=== PATIENT | female | born 1995 | race Caucasian/White ===

== ENCOUNTER 2017-11-03 13:38 | Emergency (ER) | payer OTHER ==
[~2017-11-03] VITALS: Ht 165.1 cm; Wt 54.4 kg
[2017-11-03 14:07] LABS: ABSOLUTE BASOPHIL COUNT 0 /CUMM (0.0-0.2); ABSOLUTE EOSINOPHIL COUNT 0.2 /CUMM (0.0-0.7); ABSOLUTE GRANULOCYTE CT 4.1 /CUMM (1.4-6.5); ABSOLUTE LYMPH COUNT 3.4 /CUMM (1.2-3.4); ABSOLUTE MONOCYTE COUNT 0.6 /CUMM (0.10-0.60); BASOPHIL % 0.4 % (0.0-2.0); EOSINOPHIL % 2.3 % (0-5); GRANULOCYTE % 49.5 % (42.2-75.2); HEMATOCRIT 39.5 % (37-47); MEAN CORPUSCULAR HGB CONC 33.5 G/DL (33.0-37.0); MEAN CORPUSCULAR VOLUME 86.8 FL (81.0-99.0); MEAN PLATELET VOLUME 9.6 FL (7.4-10.4); PLATELET COUNT 280 /CUMM (130-400); RBC DISTRIBUTION WIDTH 14.9 % (11.5-14.5); RED BLOOD CELL CT 4.55 /CUMM (4.20-5.40); WHITE BLOOD CELL COUNT 8.4 /CUMM (4.8-10.8)
--- NOTE | 2017-11-03 15:36 | ULTRASOUND REPORT ---
EXAMINATION: US ABDOMEN LIMITED CLINICAL INFORMATION: Right upper quadrant pain. Hepatitis C. Patient nonfasting.. COMPARISON: None TECHNIQUE: Real-time imaging of the right upper quadrant abdominal viscera. FINDINGS: PANCREAS: Visualized portions of the head and body of the pancreas unremarkable. The distal tail is obscured by overlying bowel gas. LIVER: The liver is normal in echotexture. No focal lesion. No intrahepatic biliary dilatation. The main portal vein is patent with appropriate direction of flow. The liver is not enlarged. GALLBLADDER: The gallbladder is relatively collapsed consistent with a nonfasting state. No pericholecystic fluid. No stones visualized. COMMON BILE DUCT: Normal in caliber measuring 0.3 cm in diameter. RIGHT KIDNEY: Normal. Mild pelviectasis. No renal calculi or focal parenchymal lesions. The kidney measures 9.2 cm in maximum dimension. FREE FLUID: None. IMPRESSION: 1. Mild right renal pelviectasis. 2. No cholelithiasis or sonographic evidence for acute cholecystitis. 3. Unremarkable sonographic appearance of the liver.
--- NOTE | 2017-11-03 15:42 | ED GI/GU/ABDOMINAL COMPLAINT ---
History of Present Illness General Chief Complaint: Abdominal Pain/Flank Pain Stated Complaint: FLANK PAIN Source: patient Exam Limitations: no limitations Vital Signs & Intake/Output Vital Signs & Intake/Output Vital Signs Date Time Temp Pulse Resp B/P B/P Pulse O2 O2 Flow FiO2 Mean Ox Delivery Rate 11/03 1607 98.7 75 18 104/70 98 Room Air Room Air 11/03 1348 99 Room Air 11/03 1342 98.2 90 18 107/73 99 Room Air Allergies Coded Allergies: NO KNOWN ALLERGIES (08/11/13) Reconcile Medications No Known Home Medications Triage Note: 22F WITH PAIN TO RIGHT RIB AREA THAT RADIATES TO BACK X1 MONTH, WAS TOLD SHE HAS HIGH LIVER ENZYMES AND +HEP C (HX IVDA). DENIES WORSENING W EATING BUT ENDORSES WORSENING ACID REFLUX. SOMETIMES PAIN IS WORSE WITH DEEP INSPIRATION. DENIES RELIEVING FACTORS. DENIES ETOH. DENIES DYSURIA OR HEMATURIA. DENIES SUBJECTIVE FEVERS. Triage Nurses Notes Reviewed? yes ? N Is pt currently ? No HPI: 22F no significant PMH with right sided anterior rib pain radiating around to posterior ribs. Pain is not positional or associated with movement. It is intermittent, lasting 30-1 hour, occurring several times per day, for several weeks. It is not associated with eating. There is rib tenderness when the pain occurs. She currently has no pain. She denies fever, chills, headache, sore throat, chest pain, SOB, cough, abdominal mpain, diarrhea, dysuria. Has a family history of gallstones (sister), but none personally. Past History Travel History Traveled to [place] past 21 day No Medical History Any Pertinent Medical History? see below for history Surgical History Surgical History: non-contributory Psychosocial History What is your primary language Czech Tobacco Use: Current Daily Use Daily Tobacco Use Amount/Type: => 5 Cigarettes daily ETOH Use: denies use Illicit Drug Use: HEROIN - SOBER Family History Hx Contributory? No Review of Systems Review of Systems Constitutional: Reports: no symptoms. EENTM: Reports: no symptoms. Respiratory: Reports: no symptoms. Cardiovascular: Reports: no symptoms. GI: Reports: no symptoms. Genitourinary: Reports: no symptoms. Musculoskeletal: Reports: no symptoms. Skin: Reports: no symptoms. Neurological/Psychological: Reports: no symptoms. Hematologic/Endocrine: Reports: no symptoms. Immunologic/Allergic: Reports: no symptoms. All Other Systems: Reviewed and Negative Physical Exam Physical Exam General Appearance: well developed/nourished, no apparent distress Head: atraumatic, normal appearance Eyes: Bilateral: normal appearance, normal inspection. Ears, Nose, Throat, Mouth: moist mucous membrane Neck: normal inspection, supple, full range of motion Respiratory: normal breath sounds, chest non-tender, no respiratory distress Cardiovascular: regular rate/rhythm Gastrointestinal: soft, non-tender Back: normal inspection, normal range of motion Extremities: normal range of motion Neurologic/Psych: awake, alert, oriented x 3, normal mood/affect Skin: intact, normal color, warm/dry Core Measures ACS in differential dx? No Sepsis Present: No Sepsis Focused Exam Completed? No Progress Differential Diagnosis: appendicitis, biliary colic, cholecystitis, diverticulitis, gastritis, hepatitis, hernia, kidney stone, pancreatitis, peptic ulcer, PUD/GERD Plan of Care: Orders Procedure Date/time Status EKG 11/03 1730 Active Add-on Test (ER Only) 11/03 1542 Active Add-on Test (ER Only) 11/03 1407 Active LIPASE 11/03 1352 Complete HEPATIC FUNCTION PANEL 11/03 1352 Complete D-DIMER 11/03 1352 Complete URINE 11/03 1340 Complete URINALYSIS 11/03 1340 Complete CBC WITHOUT DIFFERENTIAL 11/03 1340 Complete BASIC METABOLIC PANEL 11/03 1340 Complete Laboratory Tests 11/03/17 1357: Urine Color STRAW, Urine Clarity CLEAR, Urine pH 6.5, Ur Specific [place] <= 1.005, Urine Protein NEG, Urine Ketones NEG, Urine Nitrite NEG, Urine Bilirubin NEG, Urine Urobilinogen 0.2, Ur Leukocyte Esterase NEG, Ur Microscopic EXAM NOT REQUIRED, Urine Hemoglobin NEG, Urine Glucose NEG, Urine Test NEGATIVE 11/03/17 1352: Anion Gap 13, Estimated GFR > 60, BUN/Creatinine Ratio 8.8, Glucose 98, Calcium 10.1, Total Bilirubin 0.6, Direct Bilirubin 0.2, AST 18, ALT 19, Alkaline Phosphatase 64, Total Protein 7.9, Albumin 4.6, Lipase 56, D-Dimer High Sensitivty < 200, CBC w Diff NO MAN DIFF REQ, RBC 4.55, MCV 86.8, MCH 29.0, MCHC 33.5, RDW 14.9 H, MPV 9.6, Gran % 49.5, Lymphocytes % 40.3, Monocytes % 7.5, Eosinophils % 2.3, Basophils % 0.4, Absolute Granulocytes 4.1, Absolute Lymphocytes 3.4, Absolute Monocytes 0.6, Absolute Eosinophils 0.2, Absolute Basophils 0 11/03/17 1345: Lipase Cancelled Initial ED EKG: NSR, no ST T wave changes Departure Departure Disposition: HOME OR SELF CARE Condition: Stable Clinical Impression Primary Impression: Costochondral chest pain Referrals: Unknown (PCP/Family) Additional Instructions: Use warm compresses on the painful areas. Take Motrin daily. Follow up with your PCP. Return to ER if new or worsening symptoms. Departure Forms: Customer Survey General Discharge Information Prescriptions: Current Visit Scripts No Known Home Medications
[2017-11-03 17:07] VITALS: BP 100/68
== END 2017-11-03 17:09 ==
LOC: ERH 13:38
PROVIDERS: Physician Assistant
DX: M94.0 Chondrocostal junction syndrome [Tietze] (principal)
CPT/HCPCS: 81003; 81025

== ENCOUNTER 2018-01-17 17:50 | Emergency (ER) | payer OTHER ==
[~2018-01-17] VITALS: Ht 167.6 cm; Wt 52.2 kg
[2018-01-17 17:57] VITALS: BP 94/69
--- NOTE | 2018-01-17 18:05 | ED GENERAL ADULT ---
History of Present Illness General Chief Complaint: Psychiatric Related Complaint Stated Complaint: TOOK SUBOXONE TO EARLY, NOW IN WITHDRAWAL Source: patient, family Exam Limitations: no limitations Vital Signs & Intake/Output Vital Signs & Intake/Output Vital Signs Date Time Temp Pulse Resp B/P B/P Pulse O2 O2 Flow FiO2 Mean Ox Delivery Rate 01/17 1757 98.7 92 18 94/69 98 Room Air Allergies Coded Allergies: NO KNOWN ALLERGIES (08/11/13) Reconcile Medications No Known Home Medications Triage Note: 23 YEAR OLD FEMALE TO TRIAGE WITH HER PARENTS, PT REQUEST HEROINE DETOX. PT HAD PMD APPOINTMENT TO GET REFILL ON HER SUBOXONE AND PMD NOTED THAT SHE HAD USED HEROINE AND ALSO IS TAKING HER SUBOXONE. WAS TOLE TO COME TO ER TO BE EVLAUATED AND THAT HE WILL NOT PRESCRIBE SUBOXONE IF SHE DOES NOT. LAST USED HEROING PRIOR TO ARRIVAL, TOOK 4 MG SUBOXONE AT NOON. DENIES SI /HI/ETOH Triage Nurses Notes Reviewed? yes Onset: Abrupt Duration: day(s): (1), better, continues in ED Timing: recent history : No Patient currently breastfeeds: No HPI: 23-year-old female with a history of opioid use disorder presents for evaluation opioid withdrawal. Patient reports that she is on Suboxone and that she had used heroin yesterday. She took Suboxone today to early prior to the onset of moderate withdrawal causing her to go into a precipitated withdrawal. She states after that started she went and got more heroin to treat her withdrawal symptoms. She reports currently she is having hot and cold sweats and body aches. She denies any other drug or alcohol use. She uses intranasally. She denies chest pain shortness of breath suicidal ideation homicidal ideation or hallucinations. She is requesting treatment of her withdrawal symptoms. She was sent in by her primary care doctor. (Mohit Van) Past History Travel History Traveled to [place] past 21 day No Medical History Any Pertinent Medical History? see below for history Psychiatric: substance abuse Endocrine: NONE Blood Disorders: NONE Cancer(s): NONE Surgical History Surgical History: non-contributory Psychosocial History What is your primary language Surinamese Tobacco Use: Current Daily Use Daily Tobacco Use Amount/Type: => 5 Cigarettes daily ETOH Use: denies use Illicit Drug Use: heroin Family History Hx Contributory? No (Mohit Van) Review of Systems Review of Systems Constitutional: Reports: malaise. EENTM: Reports: no symptoms. Respiratory: Reports: no symptoms. Cardiovascular: Reports: no symptoms. GI: Reports: no symptoms. Genitourinary: Reports: no symptoms. Musculoskeletal: Reports: joint pain, muscle pain, muscle stiffness. Skin: Reports: no symptoms. Neurological/Psychological: Reports: no symptoms. Hematologic/Endocrine: Reports: no symptoms. Immunologic/Allergic: Reports: no symptoms. All Other Systems: Reviewed and Negative (Mohit Van) Physical Exam Physical Exam General Appearance: well developed/nourished, no apparent distress, alert, awake Head: atraumatic, normal appearance Eyes: Bilateral: normal appearance, EOMI. Ears, Nose, Throat: hearing grossly normal Neck: normal inspection, supple, full range of motion Respiratory: no respiratory distress Back: normal inspection, normal range of motion Extremities: normal inspection, normal range of motion Neurologic/Psych: no motor/sensory deficits, awake, alert, oriented x 3, normal gait, normal mood/affect Skin: intact, normal color, warm/dry Core Measures ACS in differential dx? No CVA/TIA Diagnosis: No Sepsis Present: No Sepsis Focused Exam Completed? No (Mohit Van) Progress Differential Diagnoses I considered the following diagnoses in my evaluation of the patient: [Opioid use disorder, opioid intoxication, opioid withdrawal] Plan of Care: Orders Procedure Date/time Status URINE 01/17 1757 Active URINE DRUG SCREEN FOR ER ONLY 01/18 1756 Active URINALYSIS 01/18 1756 Active Patient is here for evaluation of opioid withdrawal. She denies suicidal or homicidal ideation. Use Suboxone and heroin today. Patient is here with her parents. Urine drug screen ordered. She has a steady gait she appears clinically sober. It was determined the patient had walked out of the emergency department when he attempted to call her back to be evaluated. Initial ED EKG: none (Mohit Van) Departure Departure Disposition: ER WALKOUT Condition: Stable Clinical Impression Primary Impression: Opioid withdrawal Referrals: Unknown (PCP/Family) Departure Forms: Customer Survey General Discharge Information Prescriptions: Current Visit Scripts No Known Home Medications (Mohit Van) PA/SENIOR SYSTEMS ADMINISTRATOR Co-Sign Statement Statement: ED Attending supervision documentation- [] I saw and evaluated the patient. I have also reviewed all the pertinent lab results and diagnostic results. I agree with the findings and the plan of care as documented in the PA's/SENIOR SYSTEMS ADMINISTRATOR's documentation. [x] I have reviewed the ED Record and agree with the PA's/SENIOR SYSTEMS ADMINISTRATOR's documentation. [] Additions or exceptions (if any) to the PAs/SENIOR SYSTEMS ADMINISTRATOR's note and plan are summarized below: [] (Lesa WOODRUFF, Tarun) Critical Care Note Critical Care Note Critical Care Time: non-applicable (Jonas GODOY,Mohit)
== END 2018-01-17 18:05 | disposition admitted as inpatient to this hospital (09) ==
LOC: ERH 17:50
DX: F11.229 Opioid dependence with intoxication, unspecified (principal)
CPT/HCPCS: 80307; 81025